=== PATIENT | female | born 1950 | race Caucasian/White ===

== ENCOUNTER → 2016-09-19 | Outpatient (CLI) | payer MEDICARE ==
--- NOTE | 2016-09-19 21:30 | PN ---
This is a 66-year-old female patient diagnosed having severe DENTON with an AHI of 99.4. The patient was treated with a CPAP pressure of 18 cm of water. The patient is coming in for a follow-up. The patient is in for a compliancy check. I checked CPAP machine. The patient was set with an automatic mode of CPAP at a pressure minimum of 10 and pressure maximum of 18. I checked her compliancy data and the patient's compliance data is very much satisfactory. Her P90 pressure is at 11, apnea-hypopnea index while on treatment is down to 1.7. Her leak factor is only 5 liters per minute and her average CPAP use 6 hours per night. Clinically the patient reports marked improvement in his sleep quality. Her sleep is more solid and less fragmented and she is not waking up at all in the middle of the night, and during the day she is much more alert and awake. She has no new complaints otherwise for now and her condition is essentially stable. BP is 159/80, pulse 78, respirations 16, saturation 96% on room air. Martin score is 4. Temperature 97.9, weight is 216. GENERAL APPEARANCE: Calm, comfortable. HEENT: Negative for JVD. There is no goiter or neck mass. LUNGS: Diminished breath sounds bilaterally; otherwise clear. Heart sounds are regular rate and rhythm. Normal S1, S2. ABDOMEN: Soft, nontender. No organomegaly. EXTREMITIES: No edema. No cyanosis or clubbing. IMPRESSION: 1. Severe symptomatic obstructive sleep apnea with an AHI of 99.4, currently on auto CPAP with a pressure maximum of 18 and a minimum of 10. The patient's treatment is successful and the compliance data is very satisfactory. 2. Morbid obesity with a body mass index of 37.5. 3. Sleep fragmentation, improved with CPAP therapy. 4. Diabetes mellitus. 5. Chronic hypersomnia, improved. PLAN: 1. Continue CPAP at the same level of pressures. 2. No need for any adjustment as long as the patient is clinically improving, and the patient is very compliant with CPAP therapy and no adjustments need to be done. 3. I will see her back in a year's time.
== END | disposition home or self-care (01) ==
LOC: SLEEP 15:45
PROVIDERS: ATTEND Internal Medicine Critical Care Medicine
DX: G47.33 Obstructive sleep apnea (adult) (pediatric) (principal); E66.01 Morbid (severe) obesity due to excess calories; Z68.37 Body mass index [BMI] 37.0-37.9, adult; E11.9 Type 2 diabetes mellitus without complications; G47.13 Recurrent hypersomnia

== ENCOUNTER → 2017-02-28 | Outpatient (CLI) | payer MEDICARE ==
[2017-02-28 16:22] LABS: Calcium 9.7 mg/dL (8.4-10.2); Potassium 4.6 mmol/L (3.5-5.1); Total Bilirubin 0.4 mg/dL (0.2-1.3); Total Protein 7.5 g/dL (6.3-8.2)
== END | disposition home or self-care (01) ==
LOC: LABWHC1 15:29
PROVIDERS: ATTEND Internal Medicine Endocrinology, Diabetes & Metabolism
DX: E11.65 Type 2 diabetes mellitus with hyperglycemia (principal)
CPT/HCPCS: 36415; 80053

== ENCOUNTER → 2017-06-01 | Outpatient (CLI) | payer MEDICARE ==
[2017-06-01 12:26] LABS: Cholesterol 143 mg/dL (<200); HDL Cholesterol 44 mg/dL (40-60)
== END | disposition home or self-care (01) ==
LOC: LABWHC1 09:00
PROVIDERS: ATTEND Internal Medicine Endocrinology, Diabetes & Metabolism
DX: E11.65 Type 2 diabetes mellitus with hyperglycemia (principal)
CPT/HCPCS: 36415; 80061; 82043; 82570

== ENCOUNTER → 2018-03-06 | Outpatient (CLI) | payer MEDICARE ==
--- NOTE | 2018-03-07 07:30 | US ---
EXAMINATION TYPE: US kidneys/renal and bladder DATE OF EXAM: 03/06/2018 COMPARISON: NONE CLINICAL HISTORY: E11.65 TYPE II DIABETES WITH HYPERGLYCEMIA. Pt states abnormal renal labs, pt is di abetic EXAM MEASUREMENTS: Right Kidney: 9.6 x 5.0 x 4.7 cm Left Kidney: 10.3 x 5.5 x 4.2 cm Large pt body habitus Right Kidney: Cortical thinning . No hydronephrosis or nephrolithiasis. Left Kidney: Lobulated contour and probable dromedary hump. Mild cortical renal thinning. No hydronep hrosis or nephrolithiasis. Bladder: wnl. The urinary bladder is anechoic. Bilateral Jets seen: No IMPRESSION: 1. Bilateral mild cortical renal thinning relating to sequela of medical renal disease. 2. Lobulated contour the left kidney likely relates to benign dromedary hump, however enhanced CT cou ld be performed for confirmation.
== END | disposition home or self-care (01) ==
LOC: RADUSWWP 15:58
PROVIDERS: ATTEND Internal Medicine Endocrinology, Diabetes & Metabolism
DX: N28.89 Other specified disorders of kidney and ureter (principal); E11.65 Type 2 diabetes mellitus with hyperglycemia
CPT/HCPCS: 76770

== ENCOUNTER 2020-11-27 12:12 | Emergency (ER) | payer MEDICARE ==
[2020-11-27 12:32] VITALS: RESP 18; TEMP 99
--- NOTE | 2020-11-27 13:04 | ED ---
General Adult HPI - General Chief complaint: Weakness Stated complaint: Covid+,weakness,braiin fog Source: patient, EMS Mode of arrival: EMS Limitations: no limitations - History of Present Illness Initial comments: 70-year-old female with a past medical history of diabetes mellitus, hypertension presents to the emergency room for not feeling well. Patient reports she was diagnosed with Covid about a week ago. Patient reports yesterday she was seen at another ER and given antibodies. Patient states she has been tired since that time and was sleeping a lot so wanted to be checked out. She denies shortness of breath. Denies fevers at this time. Patient also states she has a rash on her abdomen that she is concerned about.Patient has no other complaints at this time including shortness of breath, chest pain, abdominal pain, nausea or vomiting, headache, or visual changes. - Related Data Previous Rx's Medication Instructions Recorded Nystatin 100,000 Unit/gm Powd 1 applic TOPICAL TID 14 Days #60 gm 11/27/20 [Mycostatin Powder] Allergies Allergy/AdvReac Type Severity Reaction Status Date / Time No Known Allergies Allergy Verified 11/27/20 13:28 Review of Systems ROS Statement: Those systems with pertinent positive or pertinent negative responses have been documented in the HPI. ROS Other: All systems not noted in ROS Statement are negative. Past Medical History Past Medical History: Diabetes Mellitus, Hypertension History of Any Multi-Drug Resistant Organisms: None Reported Past Surgical History: Back Surgery Past Psychological History: Depression Smoking Status: Never smoker Past Alcohol Use History: None Reported Past Drug Use History: None Reported General Exam Limitations: no limitations General appearance: alert, in no apparent distress Head exam: Present: atraumatic, normocephalic, normal inspection Eye exam: Present: normal appearance, PERRL, EOMI. Absent: scleral icterus, con junctival injection, periorbital swelling ENT exam: Present: normal exam, mucous membranes moist Neck exam: Present: normal inspection. Absent: tenderness, meningismus, lymphadenopathy Respiratory exam: Present: normal lung sounds bilaterally. Absent: respiratory distress, wheezes, rales, rhonchi, stridor Cardiovascular Exam: Present: regular rate, normal rhythm, normal heart sounds. Absent: systolic murmur, diastolic murmur, rubs, gallop, clicks GI/Abdominal exam: Present: soft, normal bowel sounds, other (Patient does have erythema of the intertriginous area of the abdominal fold consistent with yeast). Absent: distended, tenderness, guarding, rebound, rigid Course Vital Signs 11/27/20 11/27/20 11/27/20 12:28 12:50 13:32 Temperature 99 F Pulse Rate 73 Respiratory 18 18 18 Rate Blood Pressure 140/78 O2 Sat by Pulse 96 Oximetry 11/27/20 11/27/20 11/27/20 14:32 15:32 16:05 Temperature 99 F Pulse Rate 68 Respiratory 18 18 18 Rate Blood Pressure 127/60 O2 Sat by Pulse 96 Oximetry EKG Findings - EKG Comments: EKG Findings:: Normal sinus rhythm, ventricular rate 74, [place] interval 138, QTc 466 Medical Decision Making - Medical Decision Making Vitals are stable. Patient is 97% on room air when I am in the room. Chest x- ray shows subtle infiltrate in the right lower lobe. Likely secondary to Zhu virus. CBC CMP unremarkable. Slight hemolysis of potassium. Glucose is 236 however patient reports she has not been taking for diabetes medications for the past 2 days because she hasn't felt like it. I did discuss that she needs to start taking these and she is agreeable. She was given some fluids here in the emergency room. At this time patient is stable for discharge, not requiring admission to the hospital. She did already receive antibody infusion. She is in no distress. She is discharged in stable condition to follow up with primary care. I discussed this case with attending Dr. Fink who agrees with this assessment and treatment plan. - Lab Data Result diagrams: 11/27/20 13:27 11/27/20 13:27 Lab Results 11/27/20 11/27/20 11/27/20 Range/Units 13:27 13:27 13:30 WBC 5.8 (3.8-10.6) k/uL RBC 4.56 (3.80-5.40) m/uL Hgb 13.1 (11.4-16.0) gm/dL Hct 37.8 (34.0-46.0) % MCV 83.0 (80.0-100.0) fL MCH 28.8 (25.0-35.0) pg MCHC 34.7 (31.0-37.0) g/dL RDW 12.6 (11.5-15.5) % Plt Count 244 (150-450) k/uL MPV 8.2 Neutrophils % 66 % Lymphocytes % 25 % Monocytes % 6 % Eosinophils % 0 % Basophils % 1 % Neutrophils # 3.8 (1.3-7.7) k/uL Lymphocytes # 1.4 (1.0-4.8) k/uL Monocytes # 0.4 (0-1.0) k/uL Eosinophils # 0.0 (0-0.7) k/uL Basophils # 0.0 (0-0.2) k/uL Sodium 132 L (137-145) mmol/L Potassium 5.4 H (3.5-5.1) mmol/L Chloride 102 (98-107) mmol/L Carbon Dioxide 20 L (22-30) mmol/L Anion Gap 10 mmol/L BUN 17 (7-17) mg/dL Creatinine 0.83 (0.52-1.04) mg/dL Est GFR (CKD-EPI)AfAm 84 (>60 ml/min/1.73 sqM) Est GFR (CKD-EPI)NonAf 73 (>60 ml/min/1.73 sqM) Glucose 236 H (74-99) mg/dL Calcium 8.8 (8.4-10.2) mg/dL Magnesium 1.9 (1.6-2.3) mg/dL Total Bilirubin 1.0 (0.2-1.3) mg/dL AST 59 H (14-36) U/L ALT 28 (4-34) U/L Alkaline Phosphatase 81 (38-126) U/L Total Protein 7.4 (6.3-8.2) g/dL Albumin 4.0 (3.5-5.0) g/dL Urine Color Yellow Urine Appearance Clear (Clear) Urine pH 6.5 (5.0-8.0) Ur Specific [place] 1.008 (1.001-1.035) Urine Protein 1+ H (Negative) Urine Glucose (UA) 3+ H (Negative) Urine Ketones 1+ H (Negative) Urine Blood Negative (Negative) Urine Nitrite Negative (Negative) Urine Bilirubin Negative (Negative) Urine Urobilinogen <2.0 (<2.0) mg/dL Ur Leukocyte Esterase Negative (Negative) Urine RBC 1 (0-5) /hpf Urine WBC <1 (0-5) /hpf Urine Mucus Rare H (None) /hpf Disposition Clinical Impression: COVID-19, Intertrigo Disposition: HOME SELF-CARE Condition: Good Instructions (If sedation given, give patient instructions): Coronavirus Disease 2019 (COVID-19) Additional Instructions: Please use powder as directed. Drink plenty of fluids. Take your medications. Follow-up with your doctor in one to 2 days. Return to the emergency room for any worsening symptoms. Prescriptions: Nystatin 100,000 Unit/gm Powd [Mycostatin Powder] 1 applic TOPICAL TID 14 Days #60 gm Is patient prescribed a controlled substance at d/c from ED?: No Referrals: Honey Cole MD [Primary Care Provider] - 1-2 days Time of Disposition: 14:22
--- NOTE | 2020-11-27 13:24 | XR ---
EXAMINATION TYPE: XR chest 1V portable DATE OF EXAM: 11/27/2020 COMPARISON: None INDICATION: Covid, SOB TECHNIQUE: Single frontal view of the chest is obtained. FINDINGS: The heart size is normal. The pulmonary vasculature is normal. Subtle right lower lobe infiltrate may be present. Lungs otherwise appear clear. IMPRESSION: 1. Subtle infiltrate may be at the right lower lobe. Lungs otherwise appear clear. Follow up exams ca n be performed as clinically indicated.
[2020-11-27] MEDS: SODIUM CHLORIDE 0.9% 1,000 ML IV STA (13:31)
[2020-11-27] MEDS: NYSTATIN 100,000 UNIT/GM POWD 15 GM TOPICAL STA (13:31)
[2020-11-27 13:49] LABS: Basophils % (A) 1 %; Eosinophils % (A) 0 %; HCT 37.8 % (34.0-46.0); HGB 13.1 gm/dL (11.4-16.0); Lymphocytes # (A) 1.4 k/uL (1.0-4.8); Lymphocytes % (A) 25 %; MCH 28.8 pg (25.0-35.0); MCHC 34.7 g/dL (31.0-37.0); Mean Platelet Volume 8.2; Monocytes # (A) 0.4 k/uL (0-1.0); Monocytes % (A) 6 %; Neutrophils # (A) 3.8 k/uL (1.3-7.7); Neutrophils % (A) 66 %; Platelet Count 244 k/uL (150-450); RBC 4.56 m/uL (3.80-5.40); RDW 12.6 % (11.5-15.5); WBC 5.8 k/uL (3.8-10.6)
[2020-11-27 14:03] LABS: Calcium 8.8 mg/dL (8.4-10.2)
[2020-11-27 14:04] LABS: Magnesium 1.9 mg/dL (1.6-2.3); Potassium 5.4 mmol/L (3.5-5.1)
[2020-11-27 14:05] LABS: Total Protein 7.4 g/dL (6.3-8.2)
[2020-11-27 14:14] LABS: Appearance,Urine Clear (Clear); Bilirubin,Urine Negative (Negative); Blood,Urine Negative (Negative); Color,Urine Yellow; Glucose,Urine (UA) 3+ (Negative); Ketones,Urine 1+ (Negative); Leukocyte Esterase,Urine Negative (Negative); Mucus,Urine Rare /hpf; Nitrite,Urine Negative (Negative); PH, Urine 6.5 (5.0-8.0); Protein,Urine 1+ (Negative); RBC,Urine 1 /hpf (0-5); Specific Gravity,Urine 1.008 (1.001-1.035); Urobilinogen,Urine <2.0 mg/dL (<2.0); WBC,Urine <1 /hpf (0-5)
[2020-11-27 16:12] VITALS: BP 127/60; PULSE 68
== END 2020-11-27 16:07 | disposition home or self-care (01) ==
LOC: EC 12:12
DX: U07.1 COVID-19 (principal); E11.9 Type 2 diabetes mellitus without complications; I10 Essential (primary) hypertension; F32.9 Major depressive disorder, single episode, unspecified
CPT/HCPCS: 36415; 71045; 80053; 81001; 83735; 85025; 93005; 96360; 99285